=== PATIENT | female | born 1970 | race Caucasian/White ===

== ENCOUNTER → 2024-05-07 | Outpatient (CLI) | payer OTHER, SELFPAY ==
--- NOTE | 2024-05-07 10:45 | XR_ITS ---
Examination: Diagnostic digital mammography, unilateral, right Computer aided detection 3-D breast Tomosynthesis, unilateral Date and time of exam: May 07, 2024 1050 hours INDICATIONS: Mammogram September 19, 2023 4 mm nodule upper outer right breast Technique: Nonmagnified MLO, CC views of the right breast have been obtained, reconstructed from 3-D Tomosynthesis images. R2 computer aided detection program utilized for evaluation of suspicious masses and/or abnormal calcifications. 3-D Tomosynthesis images obtained. Findings: Scattered areas of fibroglandular density Focal asymmetry remains outer right breast on the CC view Impression: BI-RADS category 3: Probably benign findings Recommend 6 month bilateral mammography follow-up Recommend repeat right breast sonography in 3 months
--- NOTE | 2024-05-07 11:00 | XR_ITS ---
Examination: Breast ultrasound, unilateral, right complete Date and time of exam: May 07, 2024 1042 hours INDICATIONS: Right breast sonogram November 04, 2023 11:00 nodule 14 x 5 x 10 mm,. Technique: Real-time guajardo scale ultrasonographic imaging performed right breast including all 4 quadrants as well as nipple retroareolar and axillary region. Findings: No cystic or solid right breast mass 4.4 cm axillary lymph node IMPRESSION: BI-RADS Category 2: Benign findings
== END | disposition home or self-care (01) ==
LOC: CDIM 10:23
PROVIDERS: PCP Family Medicine; Referring Provider Obstetrics & Gynecology; Visit Provider Obstetrics & Gynecology
DX: R92.331 Mammographic heterogeneous density, right breast (principal)
CPT/HCPCS: 76641; 77061; 77065; G0279

== ENCOUNTER 2024-06-28 14:18 | Emergency (ER) | payer OTHER, SELFPAY ==
[2024-06-28 14:19] VITALS: BMI 37.9
[2024-06-28 14:52] VITALS: BP 148/89; PULSE 75; RESP 18; TEMP 36.8; O2SAT 95
--- NOTE | 2024-06-28 14:54 | XR_ITS ---
Examination: Left wrist 2 views Technique one AP lateral left wrist 2 views Exam date and time: June 28, 2024 1459 hours INDICATIONS: Patient fell 4 days ago with injury to the wrist, wrist pain. FINDINGS: No acute fracture No dislocation No foreign body IMPRESSION: No acute fracture
--- NOTE | 2024-06-28 14:54 | XR_ITS ---
Examination: Hand, left 2 views Technique: Hand AP, lateral 2 views Date and time of exam: June 28, 2024 1458 hours INDICATIONS: Patient fell 4 days ago with injury to the hand, hand pain FINDINGS: Prominent osteopenia No acute fracture No dislocation IMPRESSION: No acute fracture
--- NOTE | 2024-06-28 14:57 | PD.EDHAND ---
Upper Extremity Injury RME/HPI General Chief Complaint: Hand/Wrist Problems Stated Complaint: LEFT HAND INJURY Time Seen by Provider: 06/28/24 14:48 Arrival date/time: 06/28/24 14:18 54-year-old female reports with complaints of left hand pain swelling and bruising after falling on outstretched hands yesterday. She denies numbness or tingling decreased range of motion of of the limb but does report weakness with intellectual property lawyer strength. Patient states that she has not taken any medications for but she has been applying ice and resting the hands with no improvement of symptoms Limitations: no limitations Related Data Home Medications ?Medication ?Instructions ?Recorded ?Confirmed metformin 1,000 mg tablet 1,000 mg PO BID #0 tabs 11/22/16 06/07/22 (Glucophage) dulaglutide 0.75 mg/0.5 mL 0.75 mg subcut QWEEK 03/14/22 03/15/22 subcutaneous pen injector (Trulicity) losartan 50 mg tablet 50 mg PO QDAY 03/14/22 03/14/22 atorvastatin 20 mg tablet 20 mg PO QDAY 03/15/22 06/07/22 fluticasone propionate 45 2 puff inhalation BID 03/15/22 03/15/22 mcg-salmeterol 21 mcg/actuation HFA inhaler (Advair HFA) albuterol 90 mcg/actuation aerosol mcg inhalation 06/07/22 06/07/22 inhaler lisinopril 20 mg tablet 20 mg PO QDAY 06/07/22 06/07/22 Previous Rx's ?Medication ?Instructions ?Recorded azithromycin 250 mg tablet See Rx Instructions PO .COMPLEX #6 06/07/22 (Zithromax Z-Jc) tabs benzocaine 15 mg-menthol 2.6 mg 1 yescia mucous membrane Q2H PRN sore 06/07/22 lozenges (Cepacol Sore Throat throat #16 ea (benzocaine-menthol)) dicyclomine 20 mg tablet 20 mg PO TID PRN abdominal pain 12/31/23 #10 tabs ondansetron 4 mg disintegrating 4 mg PO Q8H PRN nausea and 12/31/23 tablet vomiting #10 tabs Allergies Allergy/AdvReac Type Severity Reaction Status Date / Time Penicillins Allergy Intermediate RASH,SWELLI Verified 06/28/24 14:23 NG Review of Systems Constitutional Constitutional: Denies chills and Denies fever(s) Musculoskeletal Musculoskeletal: Reports arthralgias, Denies deformity, Reports joint swelling, Denies numbness and Denies tingling Integumentary/Breasts Skin/Breast: Reports unusual bruising and Denies wounds Neurologic Neurologic: Denies numbness and Denies tingling Hematologic/Lymphatic Hematologic/Lymphatic: Denies easy bleeding and Denies easy bruising Past Medical History Past Medical History NEUROLOGIC: Negative Seizures CARDIAC: Positive Cardiac Disorders, Hypercholesterolemia and Hypertension; Negative Congestive Heart Failure RESPIRATORY: Positive Chronic Obstructive Pulmonary Disease (COPD) and Asthma GASTROINTESTINAL: Positive Gastrointestinal Disorders GENITOURINARY: Positive Kidney Stones; Negative Renal Disease ENDOCRINE: Positive Diabetes Mellitus Type 2; Negative Diabetes Mellitus Type 1 HEMATOLOGIC: Negative Blood Disorders or Clotting Problems PSYCHO/SOCIAL: Negative Depression OTHER HISTORY: Positive Chicken Pox; Negative Blood Transfusions or Anesthesia Reactions Family History FAMILY HISTORY: Positive Family Cardiac Disorders; Negative Family Anesthesia Reaction Surgical History SURGICAL: Positive Tonsillectomy and Section Social History SMOKING STATUS: Never smoker ED Exam General Limitations: Present no limitations General appearance: Present alert and in no apparent distress Expanded Upper Extremity Exam Elbow exam: Present normal inspection and full ROM Forearm/Wrist exam: Present other (left wrist with diffuse ecchymosis and tenderness over radius extending to thumb, FROM with c/o pain pulses/reflexes 2+, sensory intact, strength 4/5) Hand exam: Present other (Left thumb with swelling the base proximal phalanx extending into the hand but diffuse range of motion capillary refill of less than 2 seconds) Vascular exam: Normal capillary refill, radial pulse and ulnar pulse Neurological Exam Neurological exam: Present alert, oriented X3 and CN II-XII intact Psychiatric Psychiatric exam: Present normal affect and normal mood Skin Skin exam: Present warm, dry, intact and normal color Course Course Course Narrative: X-ray of left hand and left wrist are negative for fractures or dislocations Quality Measures none Orders Category Date Time Status XR hand LT 2V Stat Exams 06/28/24 14:54 Taken XR wrist LT 2V Stat Exams 06/28/24 14:54 Taken Vital Signs Vital signs: Vital Signs Temperature 98.2 F 06/28/24 14:52 Pulse Rate 75 06/28/24 14:52 Respiratory Rate 18 06/28/24 14:52 Blood Pressure 148/89 H 06/28/24 14:52 Pulse Oximetry (%) 95 06/28/24 14:52 Oxygen Delivery Method Room Air 06/28/24 14:52 Extremity Injury Patient data External records reviewed:: None Clinical information provided by:: patient Social determinants that could affect healthcare access:: none Patient has the following chronic illnesses:: none How is presenting disease/condition affected by chronic disease/condition?: no chronic disease Evaluation data The following diagnostics were reviewed and interpreted by me:: radiology exam(s) Lab and/or radiology exams considered but not ordered:: none Interpretation Summary: Hand and wrist x-ray negative for fractures or dislocations Medications / Prescriptions Medications or Prescriptions considered but not ordered:: none Medication administrations:: none Consultations Consultation(s) initiated? (list below): No Diagnosis Upper Extremity Injury Differential Diagnosis: sprain and strain of wrist, fracture of wrist and fracture of hand Most likely diagnosis given after review of the tests above:: Left wrist sprain Admission Indicated Admission indicated?: not indicated Admission Request Was there a request for admission?: No Disposition Plan Disposition Plan: Discharge Discharge Attestation Discharge Attestation: The patient and all family members were given an opportunity to ask questions and understood the discharge instructions. Discharge instructions specifically effects, indications for sooner follow up or return to the emergency department, and the expected course of current diagnosis. Patient condition: Stable Discharge Plan Plan Patient Disposition: HOME (Self Care) Prescriptions/Referrals Prescriptions/Med Rec: No Action azithromycin [Zithromax Z-Jc] 250 mg tablet See Rx Instructions PO .COMPLEX Qty: 6 0RF Rx Instructions: For 250 mg dose pack: take 500 mg today (day 1), then 250 mg for 4 days (days 2-5) PO Cepacol Sore Throat (brian-men) 15-2.6 mg lozenge 1 yesica mucous membrane Q2H PRN (Reason: sore throat) Qty: 16 0RF metformin [Glucophage] 1,000 MG tablet 1,000 mg PO BID Qty: 0 losartan 50 mg Tablet 50 mg PO QDAY Trulicity 0.75 mg/0.5 mL Pen Injector 0.75 mg SUBCUT QWEEK Advair HFA 45-21 mcg/actuation Hfa Aerosol Inhaler 2 puff INHALATION BID atorvastatin 20 mg Tablet 20 mg PO QDAY dicyclomine 20 mg tablet 20 mg PO TID PRN (Reason: abdominal pain) Qty: 10 0RF ondansetron 4 mg tablet,disintegrating 4 mg PO Q8H PRN (Reason: nausea and vomiting) Qty: 10 0RF Referrals: Janusz Rodriguez MD [Primary Care Provider] - In 1 week Problem List Clinical Impression: Left wrist sprain Patient/Caregiver Discharge Instructions Discharge Activity: activity as tolerated Education Materials: ED Wrist Sprain Additional Instructions: Your x-rays are negative for evidence of fractures or dislocations you do have sprain of the soft tissue. You should apply ice wear the wrist brace and [id number] medication such as ibuprofen or Tylenol and follow-up with your primary care provider in 7 days for reevaluation Print Language: Emirati Stand Alone Forms: [facility] Award Info., Patient Portal Info Letter
== END 2024-06-28 16:25 | disposition home or self-care (01) ==
PROVIDERS: Emergency Provider Emergency Medicine; PCP Family Medicine
DX: S63.502A Unspecified sprain of left wrist, initial encounter (principal); W19.XXXA Unspecified fall, initial encounter
CPT/HCPCS: 73100; 73120; 99283

== ENCOUNTER → 2024-07-02 | Outpatient (CLI) | payer OTHER, SELFPAY ==
--- NOTE | 2024-07-02 12:37 | XR_ITS ---
Examination: Left elbow 2 views Technique one AP lateral left elbow 2 views Exam date and time: July 02, 2024 1355 hours INDICATIONS: Patient fell last week with injury to the elbow, elbow pain. FINDINGS: Old appearing deformity of the radial neck but clinical correlation advised No elbow dislocation IMPRESSION: Old appearing deformity of the radial neck but clinical correlation advised If pain persists, suggest CT scan elbow without contrast follow-up
--- NOTE | 2024-07-02 12:37 | XR_ITS ---
Examination: Humerus 2 views left Technique: Humerus, AP lateral 2 views Date and time of exam: July 02, 2024 1346 hours INDICATIONS: Patient fell last week with injury to left arm, left arm pain. FINDINGS: Moderate osteopenia No shoulder dislocation Shaft of the humerus appears intact Nonstandard views IMPRESSION: Limited study with no acute fracture depicted
== END | disposition home or self-care (01) ==
LOC: COPL 12:30 → CDIM 07-26 12:55
PROVIDERS: PCP Family Medicine; Referring Provider Nurse Practitioner Family; Visit Provider Nurse Practitioner Family
DX: S59.902A Unspecified injury of left elbow, initial encounter (principal); S49.92XA Unspecified injury of left shoulder and upper arm, initial encounter; W19.XXXA Unspecified fall, initial encounter
CPT/HCPCS: 73060; 73070

== ENCOUNTER → 2024-08-06 | Outpatient (CLI) | payer OTHER, SELFPAY ==
--- NOTE | 2024-08-06 10:30 | XR_ITS ---
Examination: Breast ultrasound, unilateral, right complete Date and time of exam: August 06, 2024, 1036 hrs. Indications: Mammogram May 07, 2024 focal asymmetry outer right breast Technique: Real-time guajardo scale ultrasonographic imaging performed right breast including all 4 quadrants as well as nipple retroareolar and axillary region. Findings: No cystic or solid mass 3.3 cm right axillary lymph node Impression: BI-RADS Category 2: Benign findings
== END | disposition home or self-care (01) ==
PROVIDERS: PCP Family Medicine; Referring Provider Obstetrics & Gynecology; Visit Provider Obstetrics & Gynecology
DX: N64.89 Other specified disorders of breast (principal)
CPT/HCPCS: 76641

== ENCOUNTER → 2024-09-16 | Outpatient (CLI) | payer OTHER, SELFPAY ==
--- NOTE | 2024-09-16 14:30 | XR_ITS ---
Examination: MRI left elbow, without contrast Date and time of exam: September 16, 2024 1503 hrs. Indications: History elbow fracture June 2024 joint clicking pain Technique: Multiple axial sagittal and coronal images of the left elbow have been obtained with the Siemens high-resolution 1.5 Sara MRI scanner. Images obtained include T2-weighted fat-suppressed sagittal sections, TR 3500, TE 46, T2 weighted coronal fat suppressed images, TR 3050, TE 84, T2-weighted transverse fat suppressed images, TR 3260, TE 63, proton density transverse images, TR 4720 TE 46, and T1 weighted coronal images, TR 560, TE 13. Findings: Healing fracture radial neck with marrow edema in the proximal radial shaft No elbow effusion The ulna including olecranon distal humerus intact Mild elbow effusion Moderate strain common flexor tendon Normal insertion of the long head of the biceps is in the radial tuberosity No soft tissue hematoma Impression: Healing fracture radial neck with satisfactory alignment Moderate strain common flexor tendon
--- NOTE | 2024-09-16 15:15 | XR_ITS ---
Examination: MRI left wrist, without contrast Date and time of exam: September 16, 2024 1540 hrs. Indications: Injury to the wrist after fall June 2024, wrist pain Technique: Multiple axial sagittal and coronal images of the left wrist have been obtained with the Siemens high-resolution 1.5 Sara MRI scanner. Images obtained include T2-weighted fat-suppressed sagittal sections, TR 3500, TE 46, T2 weighted coronal fat suppressed images, TR 3050, TE 84, T2-weighted transverse fat suppressed images, TR 3260, TE 63, proton density transverse images, TR 4720 TE 46, and T1 weighted coronal images, TR 560, TE 13. Findings: No occult fracture bone contusion or marrow edema Moderate narrowing radiocarpal joint Intact triangular fibrocartilage No avascular necrosis Flexor tendons intact with normal median nerve Diffuse mild tendinitis extensor tendons Impression: No fracture Intact triangular fibrocartilage intact
== END | disposition home or self-care (01) ==
LOC: SMRI 14:12
PROVIDERS: PCP Family Medicine; Referring Provider Family Medicine; Visit Provider Family Medicine
DX: M25.532 Pain in left wrist (principal); S52.132D Displaced fracture of neck of left radius, subsequent encounter for closed fracture with routine healing; S56.21 Strain of other flexor muscle, fascia and tendon at forearm level; W19.XXXD Unspecified fall, subsequent encounter
CPT/HCPCS: 73221

== ENCOUNTER → 2024-10-29 | Outpatient (CLI) | payer OTHER, SELFPAY ==
--- NOTE | 2024-10-29 08:15 | XR_ITS ---
Examination: Screening digital mammography, bilateral Computer aided detection 3-D breast Tomosynthesis, bilateral Date and time of exam: October 29, 2024 0802 hours Compared to mammograms dating to August 10, 2021 Indication: Screening Technique: Nonmagnified MLO, CC views of the breasts to been obtained, reconstructed from 3-D Tomosynthesis images. R2 computer aided detection program utilized for evaluation of suspicious masses and/or abnormal calcifications. 3-D Tomosynthesis images obtained. Findings: Scattered areas of fibroglandular density. Benign calcifications. No interval suspicious masses Impression: BI-RADS category II: Benign Findings. Recommend 1 year follow-up mammogram.
== END | disposition home or self-care (01) ==
LOC: CDIM 07:52
PROVIDERS: PCP Family Medicine; Referring Provider Obstetrics & Gynecology; Visit Provider Obstetrics & Gynecology
DX: Z12.31 Encounter for screening mammogram for malignant neoplasm of breast (principal); R92.323 Mammographic fibroglandular density, bilateral breasts; R92.1 Mammographic calcification found on diagnostic imaging of breast
CPT/HCPCS: 77063; 77067

== ENCOUNTER 2025-05-21 19:20 | Emergency (ER) | payer OTHER, SELFPAY ==
[2025-05-21 19:22] VITALS: BMI 38.2
[2025-05-21 19:57] VITALS: BP 166/90; PULSE 88; RESP 20; TEMP 37.2; O2SAT 96
[2025-05-21 20:09] VITALS: BP 146/85
[2025-05-21] MEDS: CLINDAMYCIN PHOS INJ 150 MG/ML VIAL 6 ML 600 MG IM (20:10)
[2025-05-21] MEDS: HYDROcodone/APAP 5/325 TABLET 1 TAB PO (20:14)
--- NOTE | 2025-05-21 21:53 | PD.EDSKIN ---
ED Skin Abcess FB-RME/HPI General Chief complaint: Skin/Abscess/Foreign Body Stated complaint: RIGHT CHEEK SWELLING, RASH Time Seen by Provider: 05/21/25 19:25 Arrival date/time: 05/21/25 19:20 This is a case of 55-year-old female who came in in the emergency room due to multiple painful lump on the right side of the face patient was seen by the PCP where she had a antibiotic injection and was discharged with Bactrim for an abscess on the face patient was fine until started to have right upper dental with mild swelling of the gum due to the pain and swelling and redness thus patient decided to sought consult here in the emergency room no fever no chill Limitations: no limitations Related Data Home Medications ?Medication ?Instructions ?Recorded ?Confirmed metformin 1,000 mg tablet 1,000 mg PO BID #0 tabs 11/22/16 06/07/22 (Glucophage) dulaglutide 0.75 mg/0.5 mL 0.75 mg subcut QWEEK 03/14/22 03/15/22 subcutaneous pen injector (Trulicity) losartan 50 mg tablet 50 mg PO QDAY 03/14/22 03/14/22 atorvastatin 20 mg tablet 20 mg PO QDAY 03/15/22 06/07/22 fluticasone propionate 45 2 puff inhalation BID 03/15/22 03/15/22 mcg-salmeterol 21 mcg/actuation HFA inhaler (Advair HFA) albuterol 90 mcg/actuation aerosol mcg inhalation 06/07/22 06/07/22 inhaler lisinopril 20 mg tablet 20 mg PO QDAY 06/07/22 06/07/22 Previous Rx's ?Medication ?Instructions ?Recorded azithromycin 250 mg tablet See Rx Instructions PO .COMPLEX #6 06/07/22 (Zithromax Z-Jc) tabs benzocaine 15 mg-menthol 2.6 mg 1 yesica mucous membrane Q2H PRN sore 06/07/22 lozenges (Cepacol Sore Throat throat #16 ea (benzocaine-menthol)) dicyclomine 20 mg tablet 20 mg PO TID PRN abdominal pain 12/31/23 #10 tabs ondansetron 4 mg disintegrating 4 mg PO Q8H PRN nausea and 12/31/23 tablet vomiting #10 tabs clindamycin HCl 300 mg capsule 300 mg PO Q6H 10 days #40 caps 05/21/25 (Cleocin HCl) Allergies Allergy/AdvReac Type Severity Reaction Status Date / Time Penicillins Allergy Intermediate RASH,ITZLLI Verified 05/21/25 19:21 NG Review of Systems Review of Systems Systems Reviewed: All systems reviewed, normal except as documented Past Medical History Past Medical History NEUROLOGIC: Negative Seizures CARDIAC: Positive Cardiac Disorders, Hypercholesterolemia and Hypertension; Negative Congestive Heart Failure RESPIRATORY: Positive Chronic Obstructive Pulmonary Disease (COPD) and Asthma GASTROINTESTINAL: Positive Gastrointestinal Disorders GENITOURINARY: Positive Kidney Stones; Negative Renal Disease ENDOCRINE: Positive Diabetes Mellitus Type 2; Negative Diabetes Mellitus Type 1 HEMATOLOGIC: Negative Blood Disorders or Clotting Problems PSYCHO/SOCIAL: Negative Depression OTHER HISTORY: Positive Chicken Pox; Negative Blood Transfusions or Anesthesia Reactions Family History FAMILY HISTORY: Positive Family Cardiac Disorders; Negative Family Anesthesia Reaction Surgical History SURGICAL: Positive Tonsillectomy and Section Social History SMOKING STATUS: Never smoker ED Exam General Limitations: Present no limitations General appearance: Present alert, in no apparent distress and other (Patient is awake alert oriented not in distress nontoxic looking well-hydrated well nourished) Head Head exam: Present atraumatic, normocephalic and normal inspection Eye Eye exam: Present normal appearance, PERRL and EOMI ENT ENT exam: Present normal exam, normal oropharynx, mucous membranes moist and other (Noted tenderness on the right upper gum with mild swelling no fluctuance not indurated but with small abscess no cellulitis no dental avulsion no dental fracture no dental caries no wheezing to) Neck Neck exam: Present normal inspection, full ROM and trachea midline; Absent tenderness, meningismus, lymphadenopathy or thyromegaly Chest Chest inspection: Present normal inspection and symmetric chest wall rise Respiratory Respiratory exam: Present normal lung sounds bilaterally; Absent respiratory distress, wheezes, stridor or accessory muscle use Cardiovascular Cardiovascular exam: Present regular rate, normal rhythm and normal heart sounds; Absent bradycardia, tachycardia, irregular rhythm, systolic murmur or diastolic murmur Abdominal Exam Abdominal exam: Present soft and normal bowel sounds Extremities Exam Extremities exam: Present normal inspection and full ROM Back Exam Back exam: Present normal inspection and full ROM Neurological Exam Neurological exam: Present alert, oriented X3, CN II-XII intact, normal gait and reflexes normal; Absent motor sensory deficit Psychiatric Psychiatric exam: Present normal affect and normal mood Skin Skin exam: Present warm, dry, intact, normal color and other (Noted for small abscess on the right cheek and right mandible tender to touch redness mild swelling but no fluctuance not indurated no surrounding cellulitis) Course Quality Measures none Orders Category Date Time Status Clindamycin Vial [Cleocin vial] Med 05/21/25 20:00 Discontinued 600 mg IM X1 ONE HYDROcodone*/APAP 5/325 [Martin 5/325] Med 05/21/25 20:05 Discontinued 1 tab PO X1 ONE Vital Signs Vital signs: Vital Signs Temperature 99 F 05/21/25 19:57 Pulse Rate 88 05/21/25 19:57 Respiratory Rate 20 05/21/25 19:57 Blood Pressure 166/90 H 05/21/25 19:57 Pulse Oximetry (%) 96 05/21/25 19:57 Oxygen Delivery Method Room Air 05/21/25 19:57 Oxygen saturation is 96% in room air Skin / Abscess / Foreign Body MDM Narrative MDM Narrative:: This is a case of 55-year-old female who came in in the emergency room due to multiple painful lump on the right side of the face patient was seen by the PCP where she had a antibiotic injection and was discharged with Bactrim for an abscess on the face patient was fine until started to have right upper dental with mild swelling of the gum due to the pain and swelling and redness thus patient decided to sought consult here in the emergency room no fever no chill physical examination patient is awake alert oriented not in distress nontoxic looking well-hydrated well-nourished patient noted to have 4 lesion or lump on the right cheek and right mandibular area suggestive of abscess but no cellulitis patient also noted to have tenderness on the right upper gum with swelling of the gum possible abscess at the time of exam there is no indication to perform incision and drainage it is hard and tender to biotic treatment is the treatment of choice patient was given clindamycin IM here in the emergency room and discharged with clindamycin patient was advised to return in 2 days for reevaluation of abscess and possible incision and drainage patient was advised for any worsening symptoms or any emergent concern return precaution in the ER isdvised Patient was discharged with comfortable condition walking with stable gait. Patient verbalized no further complains explained diagnosis and answered patient question. Patient is comfortable with the proposed management plan including the need to follow up with his/her primary care physician and any specialist if applicable Discussed patient for any urgent condition or worsening sx, He/She needed to go to emergency room immediately or call 911. Patient acknowledge the responsibility to follow up as instructed and to monitor her/his symptoms. For any persistence of the symptoms for more than 3-5 days return precaution advised. Discussed the result of the test and was given printed discharge instruction Patient data External records reviewed:: [facility] previous records Clinical information provided by:: patient Social determinants that could affect healthcare access:: none Patient has the following chronic illnesses:: None How is presenting disease/condition affected by chronic disease/condition?: no chronic disease Evaluation data The following diagnostics were reviewed and interpreted by me:: other (specify) (None) Lab and/or radiology exams considered but not ordered:: None Interpretation Summary: None Medications / Prescriptions Medications or Prescriptions considered but not ordered:: Given Medication administrations:: Medication Administration History Discontinued Medications Hydrocodone Bitart/Acetaminophen (Hydrocodone/Apap 5/325 Tablet) 1 tab PO X1 ONE Stop: 05/21/25 20:06 Last Admin: 05/21/25 20:14 Dose: 1 tab Documented By: YASMEEN Clindamycin Phosphate (Clindamycin Phos Inj 150 Mg/Ml Vial 6 Ml) 600 mg IM X1 ONE Stop: 05/21/25 20:01 Last Admin: 05/21/25 20:10 Dose: 600 mg Documented By: YASMEEN Given Consultations Consultation(s) initiated? (list below): No Diagnosis Skin/Abscess Differential Diagnosis: abscess of skin or subcutaneous tissue and cellulitis Most likely diagnosis given after review of the tests above:: Facial and dental abscess Admission Indicated Admission indicated?: not indicated Explain why admission is indicated or not indicated:: Not indicated Admission Request Was there a request for admission?: No Admission Attestation Admission request attestation: Not indicated Disposition Plan Disposition Plan: Discharge Discharge Attestation Discharge Attestation: The patient and all family members were given an opportunity to ask questions and understood the discharge instructions. Discharge instructions specifically effects, indications for sooner follow up or return to the emergency department, and the expected course of current diagnosis. Patient condition: Stable Discharge Plan Plan Patient Disposition: HOME (Self Care) Patient condition on transfer: Stable Prescriptions/Referrals Prescriptions/Med Rec: New clindamycin HCl [Cleocin HCl] 300 mg capsule 300 mg PO Q6H 10 Days Qty: 40 0RF No Action azithromycin [Zithromax Z-Jc] 250 mg tablet See Rx Instructions PO .COMPLEX Qty: 6 0RF Rx Instructions: For 250 mg dose pack: take 500 mg today (day 1), then 250 mg for 4 days (days 2-5) PO Cepacol Sore Throat (brian-men) 15-2.6 mg lozenge 1 yesica mucous membrane Q2H PRN (Reason: sore throat) Qty: 16 0RF metformin [Glucophage] 1,000 MG tablet 1,000 mg PO BID Qty: 0 losartan 50 mg Tablet 50 mg PO QDAY Trulicity 0.75 mg/0.5 mL Pen Injector 0.75 mg SUBCUT QWEEK Advair HFA 45-21 mcg/actuation Hfa Aerosol Inhaler 2 puff INHALATION BID atorvastatin 20 mg Tablet 20 mg PO QDAY dicyclomine 20 mg tablet 20 mg PO TID PRN (Reason: abdominal pain) Qty: 10 0RF ondansetron 4 mg tablet,disintegrating 4 mg PO Q8H PRN (Reason: nausea and vomiting) Qty: 10 0RF Problem List Clinical Impression: Dental abscess, Facial abscess Patient/Caregiver Discharge Instructions Education Materials: Dental Abscess, ED Abscess Antibiotic ..., ED Dental Abscess with Facial ... Additional Instructions: It is very important to return in the emergency room in 2 days for reevaluation of your dental abscess and facial abscess it is also important to see a dentist for reevaluation and possible dental procedure follow-up with PCP in 2 days for reevaluation for any worsening symptoms or any emergent concern return precaution in the ED advised finish the course of antibiotic stop taking Bactrim and start taking clindamycin the area clean and dry oral care is advised Print Language: Mongolian Stand Alone Forms: Vernell Award Info., Patient Portal Info Letter PA/RELAY [employer]OP SUPERVISOR Supervising Physician PA/[employer]LAY [employer] SUPERVISOR Supervising Physician: Dr. Tosha Leon
== END 2025-05-21 20:30 | disposition home or self-care (01) ==
LOC: SERX 20:28
PROVIDERS: Emergency Provider Emergency Medicine
DX: L02.01 Cutaneous abscess of face (principal); K04.7 Periapical abscess without sinus
CPT/HCPCS: 96372; 99282; J0736; A9270